=== PATIENT | female | born 2005 | race Caucasian/White ===

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

== ENCOUNTER 2024-03-05 16:08 | Outpatient (REF) | payer BC, SELFPAY | END 2024-03-05 16:09 | disposition home or self-care (01) | LOC: LBN 16:08 | PROVIDERS: PCP Student in an Organized Health Care Education/Training Program; Visit Provider Nurse Practitioner Family | DX: R30.0 Dysuria (principal) | CPT/HCPCS: 87086 ==

== ENCOUNTER 2024-07-01 02:31 | Outpatient (CLI) | payer BC, SELFPAY ==
[2024-07-01 14:28] LABS: Abs Immature Grans 0.01 10^3/uL (0.0-0.06); Absolute Basophil Count 0.03 10^3/uL (0.0-0.2); Absolute Eosinophil Count 0.19 10^3/uL (0.0-0.7); Absolute Monocyte Count 0.32 10^3/uL (0.1-0.8); Absolute Neutrophil Count 2.59 10^3/uL (1.2-6.7); Basophils % 0.6 %; Eosinophils % 3.9 %; HCT 37.6 % (36.0-46.0); HGB 12.8 g/dL (11.2-15.7); Immature Grans % 0.2 %; Lymphocytes % 35.1 %; MCH 30.9 pg (27.0-33.0); MCV 91 fL (80-95); MPV 11.2 fL (8.0-11.0); Monocytes % 6.6 %; Neutrophils % 53.6 %; Platelet Count 188 10^3/uL (130-400); RBC 4.14 10^6/uL (3.93-5.22); RDW 11.8 % (11.7-14.6); RDW-SD 39.3 fL; WBC 4.84 10^3/uL (4.4-10.8)
[2024-07-01 15:44] LABS: TSH (W/Ref FT4) 1.78 uIU/mL (0.36-3.74)
== END 2024-07-01 02:32 | disposition home or self-care (01) ==
LOC: LBO 02:32
PROVIDERS: PCP Student in an Organized Health Care Education/Training Program; Visit Provider Student in an Organized Health Care Education/Training Program
DX: R53.83 Other fatigue (principal); Z80.8 Family history of malignant neoplasm of other organs or systems
CPT/HCPCS: 36415; 84443; 85025